=== PATIENT | female | born 1990 | race Caucasian/White ===

== ENCOUNTER 2018-01-19 20:05 | Emergency (ER) | payer OTHER ==
[2018-01-19 20:15] VITALS: BP 124/83; PULSE 89; RESP 18; TEMP 98.5
[2018-01-19] MEDS ORDERED: predniSONE 20 MG TAB PO STA (20:16)
--- NOTE | 2018-01-19 20:54 | XR ---
EXAMINATION: XR chest 2V DATE AND TIME: 01/19/2018 8:26 PM CLINICAL INDICATION: Pain TECHNIQUE: PA and lateral COMPARISON: 05/20/2013 FINDINGS: There is silhouetting of the left heart border consistent with airlessness within the lingula. Left l ower lobe ill-defined added opacity also noted, partially silhouetting the left hemidiaphragm. The ravinder ngs are otherwise clear bilaterally. The pleural spaces are negative. The cardiac silhouette is not enlarged. The skeletal structures and soft tissues are negative for acute findings. IMPRESSION: Partially consolidative opacity within the lingula and left lower lobe consistent with a clinical angela gnosis of pneumonia.
--- NOTE | 2018-01-19 21:20 | ED ---
URI HPI - General Chief Complaint: Upper Respiratory Infection Stated Complaint: right side pain/congestion Time Seen by Provider: 01/19/18 20:16 Source: patient Mode of arrival: ambulatory Limitations: no limitations - History of Present Illness Initial Comments: 28yo female with no PMH with cc of cough, congestion and pain with palpation of the right upper ribs x2 weeks. Pt states that 2 weeks ago her son was sick two weeks prior with similar symptoms. It began with a sore throat, congestions she states that the sore throat subsided however she continued to be congested and have a cough. Pt admits to increasing sputum past few days. Pt states that she has had a fever at home and has been taking tylenol and ibuprofen for mgmt. Patient denies shortness of breath, chest pain, back pain, abdominal pain, nausea or vomiting, numbness or tingling, dysuria or hematuria, constipation or diarrhea, headaches or visual changes, or any other complaints. Pt was seen and diagnosed with URI on 01/[address] [facility] no antibiotics given at that time. Upon arrival to the ER today pt VS within normal limits, pt afebrile. Appears well. - Related Data Previous Rx's Medication Instructions Recorded Albuterol Inhaler [Ventolin Hfa 1 - 2 puff INHALATION RT-Q6H PRN 7 01/19/18 Inhaler] Days #1 inhaler Azithromycin [Zithromax] 250 mg PO DAILY 4 Days #4 tab 01/19/18 predniSONE 20 mg PO DAILY 4 Days #4 tab 01/19/18 Allergies Allergy/AdvReac Type Severity Reaction Status Date / Time Penicillins Allergy Rash/Hives Verified 01/19/18 20:12 Review of Systems ROS Statement: Those systems with pertinent positive or pertinent negative responses have been documented in the HPI. ROS Other: All systems not noted in ROS Statement are negative. Constitutional: Reports: fever, chills ENT: Reports: throat pain (not in 1 week). Denies: ear pain Respiratory: Reports: cough. Denies: dyspnea, wheezes, hemoptysis, stridor Cardiovascular: Denies: chest pain, palpitations Gastrointestinal: Denies: abdominal pain, nausea, vomiting, diarrhea, constipation Genitourinary: Denies: urgency, dysuria, frequency, hematuria Musculoskeletal: Denies: back pain Skin: Denies: rash, lesions Neurological: Denies: headache, weakness, numbness, paresthesias, confusion Past Medical History Past Medical History: No Reported History History of Any Multi-Drug Resistant Organisms: None Reported Past Surgical History: No Surgical Hx Reported Past Psychological History: No Psychological Hx Reported Smoking Status: Current every day smoker Past Alcohol Use History: None Reported Past Drug Use History: None Reported General Exam - General Exam Comments Initial Comments: General: The patient is awake and alert, in no distress, and does not appear acutely ill. Eye: Pupils are equal, round and reactive to light, extra-ocular movements are intact. No nystagmus. There is normal conjunctiva bilaterally. No signs of icterus. Ears, nose, mouth and throat: There are moist mucous membranes and no oral lesions. Oropharynx is nonerythematous, there is no tonsillar enlargement or exudates. Uvula is midline. There is no palpable anterior cervical lymphadenopathy. Tympanic membranes within normal limits bilaterally. No pain to palpation of the mastoid. Post nasal drip. Nares non patent. Neck: The neck is supple, there is no tenderness or JVD. Cardiovascular: There is a regular rate and rhythm. No murmur, rub or gallop is appreciated. Respiratory: Lungs are clear to auscultation, respirations are non-labored, breath sounds are equal. No wheezes, stridor, rales, or rhonchi. (-) egophony. There is tenderness to palpation over the right upper ribs. Gastrointestinal: Soft, non-distended, non-tender abdomen without masses or organomegaly noted. There is no rebound or guarding present. No CVA tenderness. Bowel sounds are unremarkable. Musculoskeletal: Normal ROM, no tenderness. Strength 5/5. Sensation intact. Radial pulses equal bilaterally 2+. Neurological: A&O x 3. CN II-XII intact, There are no obvious motor or sensory deficits. Coordination appears grossly intact. Speech is normal. Skin: Skin is warm and dry and no rashes or lesions are noted. Psychiatric: Cooperative, appropriate mood & affect, normal judgment. Limitations: no limitations Course Vital Signs 01/19/18 20:12 Temperature 98.5 F Pulse Rate 89 Respiratory 18 Rate Blood Pressure 124/83 O2 Sat by Pulse 97 Oximetry Medical Decision Making - Medical Decision Making Pt shows no signs of respiratory distress. O2 saturation 97%, pt afebrile, HR WNL no comorbidities/immunocompromise. No recent ABX use. CXR revealed partially consolidating opacity in the linguila and left lower lobe consistent with pneumonia. Pt was given 500mg azithromycin, and an outside RX for 250mg for CAP, prednisone and albuterol inhaler. In addition pt was instructed to follow-up outpatient with her primary care provider in the next 1-2 days. Case discussed in detail with Dr. Morataya and imaging reviewed. At this time we feel pt is stable for outpatient therapy of CAP, pt appears well/nontoxic. Return parameters discussed in detail with patient who verbalized understanding, pt discharged in stable condition. Disposition Clinical Impression: CAP (community acquired pneumonia) Disposition: HOME SELF-CARE Condition: Good Instructions: Community Acquired Pneumonia (ED) Additional Instructions: Please use medication as discussed. Please follow-up with family doctor in the next 2 days. Please return to emergency room if the symptoms increase or worsen or for any other concerns, as discussed. Prescriptions: Albuterol Inhaler [Ventolin Hfa Inhaler] 1 - 2 puff INHALATION RT-Q6H PRN 7 Days #1 inhaler PRN Reason: Wheezing Azithromycin [Zithromax] 250 mg PO DAILY 4 Days #4 tab predniSONE 20 mg PO DAILY 4 Days #4 tab Is patient prescribed a controlled substance at d/c from ED?: No Referrals: None,Stated [Primary Care Provider] - 1-2 days [facility] [NON-STAFF] - 1-2 days Time of Disposition: 21:19
== END 2018-01-19 21:42 | disposition home or self-care (01) ==
LOC: EC 20:05
DX: J18.9 Pneumonia, unspecified organism (principal); F17.200 Nicotine dependence, unspecified, uncomplicated; Z88.0 Allergy status to penicillin
CPT/HCPCS: 71046; 99283; J7512

== ENCOUNTER 2019-04-27 19:38 | Emergency (ER) | payer OTHER ==
[2019-04-27] MEDS ORDERED: ALBUTEROL NEBULIZED 2.5 MG/3 ML INHALATION STA (19:58)
[2019-04-27] MEDS ORDERED: FAMOTIDINE 20 MG TAB PO STA (19:58)
[2019-04-27] MEDS ORDERED: predniSONE 20 MG TAB PO STA (19:58)
--- NOTE | 2019-04-27 19:58 | ED ---
General Adult HPI - General Chief complaint: Upper Respiratory Infection Stated complaint: fever/TOMASA Time Seen by Provider: 04/27/19 19:46 Source: patient Mode of arrival: ambulatory Limitations: no limitations - History of Present Illness Initial comments: Patient is a 29-year-old female presenting to the emergency department with a chief complaint of cough and fever. States symptoms began yesterday with a gradual onset of a productive cough with yellow sputum production. Does report some shortness of breath and wheezing. No history of asthma but does report chronic smoking. Also reports she has not developed a sore throat but denies any otalgia. Does report some sinus congestion clear bilateral rhinorrhea. Does report a fever at home. Denies taking any medication to alleviate the symptoms. No chest pain back pain abdominal pain nausea vomiting or diarrhea. - Related Data Previous Rx's Medication Instructions Recorded Albuterol Inhaler [Ventolin Hfa 1 - 2 puff INHALATION RT-Q6H PRN 7 01/19/18 Inhaler] Days #1 inhaler Azithromycin [Zithromax] 250 mg PO DAILY 4 Days #4 tab 01/19/18 predniSONE [Deltasone] 20 mg PO DAILY 4 Days #4 tab 01/19/18 Albuterol Inhaler [Ventolin Hfa 1 - 2 puff INHALATION RT-Q6H PRN 04/27/19 Inhaler] #1 inhaler Azithromycin [Zithromax Z-pack] 0 mg PO DIRECTED #1 pack 04/27/19 Guaifenesin/Dextromethorphan 1 each PO BID #30 tab 04/27/19 [Mucinex Dm ER 1,200-60 mg Tab] Oseltamivir [Tamiflu] 75 mg PO Q12HR #10 cap 04/27/19 Allergies Allergy/AdvReac Type Severity Reaction Status Date / Time Penicillins Allergy Rash/Hives Verified 04/27/19 19:42 Review of Systems ROS Statement: Those systems with pertinent positive or pertinent negative responses have been documented in the HPI. ROS Other: All systems not noted in ROS Statement are negative. Past Medical History Past Medical History: No Reported History History of Any Multi-Drug Resistant Organisms: None Reported Past Surgical History: No Surgical Hx Reported Past Psychological History: No Psychological Hx Reported Smoking Status: Current every day smoker Past Alcohol Use History: None Reported Past Drug Use History: None Reported General Exam Limitations: no limitations General appearance: alert, in no apparent distress Head exam: Present: atraumatic, normocephalic, normal inspection Eye exam: Present: normal appearance Pupils: Present: normal accommodation ENT exam: Present: normal exam, normal oropharynx, mucous membranes moist, TM's normal bilaterally, normal external ear exam Neck exam: Present: normal inspection, full ROM. Absent: lymphadenopathy Respiratory exam: Present: wheezes (Bilateral wheezing) Cardiovascular Exam: Present: normal rhythm, tachycardia, normal heart sounds Extremities exam: Present: normal inspection, full ROM, normal capillary refill Back exam: Present: normal inspection, full ROM Neurological exam: Present: alert, oriented X3 Psychiatric exam: Present: normal affect, normal mood Skin exam: Present: warm, dry, intact, normal color Course Vital Signs 04/27/19 04/27/19 04/27/19 19:39 20:07 20:23 Temperature 100.7 F H Pulse Rate 115 H 110 H 125 H Respiratory 20 Rate Blood Pressure 119/66 O2 Sat by Pulse 96 Oximetry 04/27/19 04/27/19 21:02 21:50 Temperature 102.2 F H 102.1 F H Pulse Rate 128 H 129 H Respiratory 18 24 Rate Blood Pressure 112/68 102/72 O2 Sat by Pulse 95 99 Oximetry Medical Decision Making - Medical Decision Making Patient is a 29-year-old female presenting to emergency Department with a chief complaint of cough and fever. States his symptoms began yesterday and gradually increased in severity. Exam patient does appear to have upper respiratory symptoms with bilateral wheezing. Yellow sputum production. Chest x-ray shows a partially healed lingual pneumonia compared to last imaging. Last chest x-ray was in 2018. This does not correlate. Patient was given a breathing treatment in the ED along with 60 mg of prednisone. Patient also will be discharged with a 5 day course of prednisone. Pepcid to alleviate the gastric discomfort from the steroids. Patient also be started on an azithromycin. Patient also given Tamiflu. Patient also given a mucolytic to promote better removal of mucous buildup. Patient will also be given albuterol inhaler. Patient was also given antipyretics in the ED. States there is some improvement after the breathing treatment. On reevaluation patient is still wheezing although it appears to be improved as she is able to move more air. Patient is influenza A positive. Return parameters were thoroughly discussed with patient is understanding and agreeable. Advised to follow with primary care. Case discussed with physician. - Lab Data Lab Results 04/27/19 Range/Units 20:02 Influenza Type A RNA Detected H (Not Detectd) Influenza Type B (PCR) Not Detected (Not Detectd) Disposition Clinical Impression: Influenza A, Pneumonia Disposition: HOME SELF-CARE Condition: Stable Instructions (If sedation given, give patient instructions): Reactive Airways Disease (ED) Additional Instructions: Take prescribed medication as directed. Follow-up with primary care. Return to emergency department if symptoms worsen. Prescriptions: Guaifenesin/Dextromethorphan [Mucinex Dm ER 1,200-60 mg Tab] 1 each PO BID #30 tab Oseltamivir [Tamiflu] 75 mg PO Q12HR #10 cap Albuterol Inhaler [Ventolin Hfa Inhaler] 1 - 2 puff INHALATION RT-Q6H PRN #1 inhaler PRN Reason: Shortness Of Breath Azithromycin [Zithromax Z-pack] 0 mg PO DIRECTED #1 pack Is patient prescribed a controlled substance at d/c from ED?: No Referrals: Hilario Shipley MD [Primary Care Provider] - 1-2 days Time of Disposition: 21:10
--- NOTE | 2019-04-27 20:37 | XR ---
EXAMINATION TYPE: XR chest 2V DATE OF EXAM: 04/27/2019 COMPARISON: 01/19/2018 HISTORY: Productive cough TECHNIQUE: 2 views FINDINGS: Heart is normal. Lungs are clear of consolidation. There are no hilar masses. There is some coarse density in the anterior lingula left upper lobe. There is no pleural effusion. Bony thorax is intact. IMPRESSION: There is a small lingula pneumonia that is partly cleared compared to old exam. Normal he art.
[2019-04-27] MEDS ORDERED: ACETAMINOPHEN TAB 500 MG TAB PO STA (21:03)
[2019-04-27] MEDS ORDERED: IBUPROFEN 600 MG TAB PO STA (21:09)
[2019-04-27 21:53] VITALS: BP 102/72; PULSE 129; RESP 24; TEMP 102.1
== END 2019-04-27 22:05 | disposition home or self-care (01) ==
LOC: EC 19:38
DX: J10.00 Influenza due to other identified influenza virus with unspecified type of pneumonia (principal); F17.200 Nicotine dependence, unspecified, uncomplicated; Z88.0 Allergy status to penicillin
CPT/HCPCS: 94640; 87502; 71046; 99285; J7512

== ENCOUNTER 2020-03-11 20:11 | Emergency (ER) | payer OTHER ==
[2020-03-11 20:19] VITALS: BP 128/77; PULSE 73; RESP 20; TEMP 98.4
[2020-03-11] MEDS ORDERED: CEFDINIR 300 MG CAP PO STA (20:26)
--- NOTE | 2020-03-11 20:28 | ED ---
ENT HPI - General Chief complaint: ENT Stated complaint: L Ear Pain Time Seen by Provider: 03/11/20 20:20 Source: patient, family Mode of arrival: ambulatory Limitations: no limitations - History of Present Illness Initial comments: 30yo female with FAMILIAL HX of anaphylaxis to pencillin no known personal reaction, presenting for cc of right ear pain x 1 weke. pt states 5 days ago she was started on ciprofloxacin drop as well as azithromycin. pt states neither seem to be working. denies dental pain. admits to pain in front of the ear, denies pain behind the ear, dental pain, fevers, cough or sore throat. pt denies drainage from ear, neck stiffness. patient appears well nontoxic in no acute distress. afebrile. - Related Data Previous Rx's Medication Instructions Recorded Albuterol Inhaler (Mhu) [Ventolin 1 - 2 puff INHALATION RT-Q6H PRN 7 01/19/18 Hfa Inhaler (Mhu)] Days #1 inhaler Azithromycin [Zithromax] 250 mg PO DAILY 4 Days #4 tab 01/19/18 predniSONE [Deltasone] 20 mg PO DAILY 4 Days #4 tab 01/19/18 Albuterol Inhaler (Mhu) [Ventolin 1 - 2 puff INHALATION RT-Q6H PRN 04/27/19 Hfa Inhaler (Mhu)] #1 inhaler Azithromycin [Zithromax Z-pack (6 0 mg PO DIRECTED #1 pack 04/27/19 tabs)] Guaifenesin/Dextromethorphan 1 each PO BID #30 tab 04/27/19 [Mucinex Dm ER 1,200-60 mg Tab] Oseltamivir [Tamiflu] 75 mg PO Q12HR #10 cap 04/27/19 Cefdinir 600 mg PO DAILY 7 Days #7 cap 03/11/20 Allergies Allergy/AdvReac Type Severity Reaction Status Date / Time Penicillins Allergy Rash/Hives Verified 03/11/20 20:19 Review of Systems ROS Statement: Those systems with pertinent positive or pertinent negative responses have been documented in the HPI. ROS Other: All systems not noted in ROS Statement are negative. Past Medical History Past Medical History: No Reported History History of Any Multi-Drug Resistant Organisms: None Reported Past Surgical History: No Surgical Hx Reported Past Psychological History: No Psychological Hx Reported Smoking Status: Current every day smoker Past Alcohol Use History: None Reported Past Drug Use History: None Reported General Exam - General Exam Comments Initial Comments: General: The patient is awake and alert, in no distress Eye: +3 mm pupils are equal, round and reactive to light, extra-ocular movements are intact. No nystagmus. There is normal conjunctiva bilaterally. No signs of icterus. Ears, nose, mouth and throat: There are moist mucous membranes and no oral lesions. TM bulging with effusion--no pain to mastoid. pain anterior to the ear. no dental pain. no abscess in mouth identified or pain to percussion of tooth. no neck stiffness. Neck: The neck is supple, there is no tenderness or JVD. Musculoskeletal: Normal ROM, no tenderness. Strength 5/5. Sensation intact. Radial pulses equal bilaterally 2+. Neurological: A&O x 3. CN II-XII intact grossly, There are no obvious motor or sensory deficits. Coordination appears grossly intact. Speech is normal. Skin: Skin is warm and dry and no rashes or lesions are noted. Psychiatric: Cooperative, appropriate mood & affect, normal judgment. Limitations: no limitations Course Vital Signs 03/11/20 20:14 Temperature 98.4 F Pulse Rate 73 Respiratory 20 Rate Blood Pressure 128/77 O2 Sat by Pulse 100 Oximetry Medical Decision Making - Medical Decision Making Nontoxic 30yo female on azithromycin currently presenting for left ear pain. Findings consistent with otitis media. No pain to palpation of mastoid. no drainage or EAC changes. patient will be discharged on cefdinir, pt wanted to avoid PCN due to family history, is aware that there is some cross sensitivity with cefdinir. case discussed with Dr. Hyde who is agreeable to care plan and discharge. Disposition Clinical Impression: Otitis media, Left ear pain Disposition: HOME SELF-CARE Condition: Good Instructions (If sedation given, give patient instructions): Ear Infection (ED) Prescriptions: Cefdinir 600 mg PO DAILY 7 Days #7 cap Is patient prescribed a controlled substance at d/c from ED?: No Referrals: Hilario Shipley MD [Primary Care Provider] - 1-2 days Buster Jacome MD [STAFF PHYSICIAN] - 1-2 days Time of Disposition: 20:27
[2020-03-11] MEDS ORDERED: ACET/COD 300 MG/30 MG STARTER PACK 6 TAB BTL PO STA (20:35)
== END 2020-03-11 20:53 | disposition home or self-care (01) ==
LOC: EC 20:11
DX: H66.92 Otitis media, unspecified, left ear (principal); F17.200 Nicotine dependence, unspecified, uncomplicated; Z88.0 Allergy status to penicillin
CPT/HCPCS: 99282

== ENCOUNTER 2020-07-22 20:31 | Emergency (ER) | payer OTHER ==
[2020-07-22 20:37] VITALS: BP 143/88; PULSE 88; RESP 22; TEMP 98.3
--- NOTE | 2020-07-22 21:13 | ED ---
ENT HPI - General Chief complaint: ENT Stated complaint: Tooth and ear pain Time Seen by Provider: 07/22/20 20:37 Source: patient, RN notes reviewed Mode of arrival: ambulatory Limitations: no limitations - History of Present Illness Initial comments: 30-year-old white female presents to the emergency room with complaints of 6 months of dental pain and unable to get into a dentist. Patient states also has had problems with bilateral ureters and cerumen impaction. Patient has been seen multiple times for this and last was prescribed Ciprodex but it is not helping. Patient states that the itching in the ears is often relieved by using a nik pin to scratch or a Q-tip into the inner canal. Patient came to the emergency room today because she does have some pain along submandibular and periauricular lymph nodes. Denies fevers, dizziness, or nausea and vomiting. Patient states has seen Dr. Bush in the past but has not gotten relief from the ear irritation. Patient is a half pack a day smoker MD complaint: tooth pain, ear pain -: month(s) (6) Location: R ear, L ear, tooth # (19) Severity scale (1-10): 8 Quality: aching Consistency: constant Improves with: none Worsens with: other (palpation) Context- Dental: other (broken tooth) Context- Ear: other (cerumen, uses nik pins to scratch inner ear) Associated Symptoms: discharge from ear (cerumen) - Related Data Previous Rx's Medication Instructions Recorded Albuterol Inhaler (Mhu) [Ventolin 1 - 2 puff INHALATION RT-Q6H PRN 7 01/19/18 Hfa Inhaler (Mhu)] Days #1 inhaler Azithromycin [Zithromax] 250 mg PO DAILY 4 Days #4 tab 01/19/18 predniSONE [Deltasone] 20 mg PO DAILY 4 Days #4 tab 01/19/18 Albuterol Inhaler (Mhu) [Ventolin 1 - 2 puff INHALATION RT-Q6H PRN 04/27/19 Hfa Inhaler (Mhu)] #1 inhaler Azithromycin [Zithromax Z-pack (6 0 mg PO DIRECTED #1 pack 04/27/19 tabs)] Guaifenesin/Dextromethorphan 1 each PO BID #30 tab 04/27/19 [Mucinex Dm ER 1,200-60 mg Tab] Oseltamivir [Tamiflu] 75 mg PO Q12HR #10 cap 04/27/19 Cefdinir 600 mg PO DAILY 7 Days #7 cap 03/11/20 Clindamycin [Cleocin] 450 mg PO Q8H 10 Days #30 cap 07/22/20 Allergies Allergy/AdvReac Type Severity Reaction Status Date / Time Penicillins Allergy Rash/Hives Verified 07/22/20 20:37 Review of Systems ROS Statement: Those systems with pertinent positive or pertinent negative responses have been documented in the HPI. ROS Other: All systems not noted in ROS Statement are negative. Past Medical History Past Medical History: No Reported History History of Any Multi-Drug Resistant Organisms: None Reported Past Surgical History: No Surgical Hx Reported Past Psychological History: No Psychological Hx Reported Smoking Status: Current every day smoker Past Alcohol Use History: None Reported Past Drug Use History: None Reported General Exam Limitations: no limitations General appearance: alert, in no apparent distress Head exam: Present: atraumatic, normocephalic, normal inspection Eye exam: Present: normal appearance (glasses), PERRL, EOMI. Absent: scleral icterus, conjunctival injection, periorbital swelling Pupils: Present: normal accommodation ENT exam: Present: normal exam, mucous membranes moist, other (broken #19 tooth, no abscess noted) Neck exam: Present: normal inspection, full ROM. Absent: tenderness, meningismus, lymphadenopathy, thyromegaly Respiratory exam: Present: normal lung sounds bilaterally. Absent: respiratory distress, wheezes, rales, rhonchi, stridor Cardiovascular Exam: Present: regular rate, normal rhythm, normal heart sounds. Absent: systolic murmur, diastolic murmur, rubs, gallop, clicks Extremities exam: Present: normal inspection, full ROM, normal capillary refill. Absent: tenderness, pedal edema, joint swelling, calf tenderness Back exam: Absent: tenderness Neurological exam: Present: alert, oriented X3, CN II-XII intact Psychiatric exam: Present: normal affect, normal mood Skin exam: Present: warm, dry, intact, normal color. Absent: rash Course Vital Signs 07/22/20 20:33 Temperature 98.3 F Pulse Rate 88 Respiratory 22 Rate Blood Pressure 143/88 O2 Sat by Pulse 99 Oximetry Medical Decision Making - Medical Decision Making Patient presents to the emergency room with 6 months of dental pain and bilateral ear irritation with excessive cerumen and itching. Patient has been using Ciprodex drops in her ears. Patient directed to stop the Ciprodex, obtain debrox [id number] for cerumen/earwax removal. Loratadine or Zyrtec for ear itching which is likely ALLERGIES. She'll be prescribed clindamycin for the dental fracture and directed to follow up with dentist as soon as possible. Patient is afebrile and well-appearing. Patient will be given an ENT referral. Case discussed with Dr. Hirsch was agreeable to this plan. Disposition Clinical Impression: Cerumen in auditory canal on examination, Tooth fracture Disposition: HOME SELF-CARE Condition: Good Instructions (If sedation given, give patient instructions): Earache (ED), Toothache (ED) Additional Instructions: Use Zyrtec or loratadine [id number], follow-up with the ear nose and throat doctor next week, also follow up with a dentist as soon as possible. Do not put anything in your ears including nik pins or Q-tips. Prescriptions: Clindamycin [Cleocin] 450 mg PO Q8H 10 Days #30 cap Is patient prescribed a controlled substance at d/c from ED?: No Referrals: Hilario Shipley MD [Primary Care Provider] - 1-2 days Yahir Chaudhry MD [STAFF PHYSICIAN] - 1-2 days Time of Disposition: 21:19
== END 2020-07-22 21:38 | disposition home or self-care (01) ==
LOC: EC 20:31
DX: S02.5XXA Fracture of tooth (traumatic), initial encounter for closed fracture (principal); H61.23 Impacted cerumen, bilateral; F17.200 Nicotine dependence, unspecified, uncomplicated; X58.XXXA Exposure to other specified factors, initial encounter
CPT/HCPCS: 99283

== ENCOUNTER 2023-04-23 07:32 | Emergency (ER) | payer OTHER ==
[2023-04-23 08:03] VITALS: TEMP 98.4
[2023-04-23] MEDS ORDERED: KETOROLAC 15 MG/ML 1 ML VIAL IVP STA (08:04)
[2023-04-23 08:25] LABS: Basophils % (A) 0 %; Eosinophils # (A) 0.1 k/uL (0-0.7); Eosinophils % (A) 1 %; HCT 39.7 % (34.0-46.0); HGB 13.7 gm/dL (11.4-16.0); Lymphocytes # (A) 1.6 k/uL (1.0-4.8); Lymphocytes % (A) 17 %; MCH 30.6 pg (25.0-35.0); MCHC 34.5 g/dL (31.0-37.0); MCV 88.7 fL (80.0-100.0); Mean Platelet Volume 8.7; Monocytes % (A) 10 %; Neutrophils # (A) 6.8 k/uL (1.3-7.7); Neutrophils % (A) 70 %; Platelet Count 284 k/uL (150-450); RBC 4.47 m/uL (3.80-5.40); RDW 11.7 % (11.5-15.5); WBC 9.7 k/uL (3.8-10.6)
[2023-04-23 08:42] LABS: ALT 19 U/L (4-34); AST 24 U/L (14-36); African American GFR (CKD) >90 (>60 ml/min/1.73 sqM); Albumin 3.8 g/dL (3.5-5.0); Alkaline Phosphatase 104 U/L (38-126); Anion Gap 8 mmol/L; Blood Urea Nitrogen 5 mg/dL (7-17); Carbon Dioxide 28 mmol/L (22-30); Chloride 101 mmol/L (98-107); Glucose 111 mg/dL (74-99); Non-African American GFR(CKD) >90 (>60 ml/min/1.73 sqM); Potassium 3.6 mmol/L (3.5-5.1); Sodium 137 mmol/L (137-145); Total Bilirubin 0.9 mg/dL (0.2-1.3); Total Protein 7.3 g/dL (6.3-8.2)
--- NOTE | 2023-04-23 08:42 | XR ---
EXAMINATION TYPE: XR chest 2V DATE OF EXAM: 04/23/2023 COMPARISON: 04/27/2019 HISTORY: Chest pain TECHNIQUE: Frontal and lateral views of the chest are obtained. FINDINGS: There is perihilar and infrahilar patchy density which may reflect developing pneumonia. Correlate cl inically. No evidence for pneumothorax. No pleural effusion. The cardiac silhouette size is within normal limits. The osseous structures are grossly intact. IMPRESSION: 1. There is perihilar and infrahilar patchy density which may reflect developing pneumonia. Correlat e clinically.
--- NOTE | 2023-04-23 10:12 | CT ---
EXAMINATION TYPE: CT chest angio for PE CT DLP: 175.9 mGycm, Automated exposure control for dose reduction was used. DATE OF EXAM: 04/23/2023 10:00 AM COMPARISON: Chest radiograph from same day. CLINICAL INDICATION:Female, 33 years old with history of pain; Chest pain, recent cold TECHNIQUE/CONTRAST: CTA scan of the thorax is performed with IV Contrast, patient injected with 100 mL of Isovue 370, pul monary embolism protocol. MIP images are created and reviewed. FINDINGS: Pulmonary Artery: There is no evidence for a filling defect within the pulmonary vasculature to sugge st acute pulmonary embolism. The pulmonary artery is of normal size. Lungs/Pleura: No evidence of focal consolidation, pleural effusion or pneumothorax. Minimal biapical pleural-parenchymal scarring. Few scattered small pulmonary cysts. There are patchy and reticular opa cities demonstrated throughout the lungs. This is most prominently within the right lower lobe with t ree-in-bud opacities. Atelectasis/consolidation within the medial aspect of the lingula. Additional a telectasis/consolidation within the medial aspect of the right lower lobe. Airway: Large airways are patent. Heart: Heart is within normal limits for size.. Vasculature: No evidence of aortic aneurysm. Mediastinum: Mediastinal and bilateral hilar adenopathy with an exam including a subcarinal lymph nod e measuring 1.4 cm short axis. Musculoskeletal: No acute osseous abnormalities Soft Tissues: Unremarkable. Lower neck: No significant findings. Upper Abdomen: [place] tail morphology of the liver. IMPRESSION: 1. No evidence of pulmonary embolism. 2. Patchy and reticular opacities are demonstrated throughout both lungs with consolidative opacities within the medial aspect of the right lower lobe and lingula. Prominent tree-in-bud opacities within the right lower lobe. Findings are most consistent with a infectious/inflammatory bronchiolitis/pneu monia. 3. Mediastinal and hilar lymphadenopathy likely reactive to #2.
[2023-04-23] MEDS ORDERED: DEXAMETHASONE SOD PHOSPHATE 10 MG/ML 1 ML VIAL IVP STA (10:25)
--- NOTE | 2023-04-23 10:25 | ED ---
URI HPI - General Chief Complaint: Upper Respiratory Infection Stated Complaint: R side chest pain SOB Time Seen by Provider: 04/23/23 07:38 Source: patient, RN notes reviewed Mode of arrival: ambulatory Limitations: no limitations - History of Present Illness Initial Comments: 33 old female presents emergency department complaint cough and colic symptoms. She states she been sick for 2 weeks she states that she felt she was getting better developed right-sided chest pain this morning. Patient states she has mild shortness of breath, underlying asthma. Patient denies nausea vomit diarrhea constipation. Patient offers no other complaints. - Related Data Previous Rx's Medication Instructions Recorded Albuterol Inhaler [Ventolin Hfa 1 - 2 puff INHALATION Q6H PRN #1 04/23/23 Inhaler] each Azithromycin [Zithromax Z Pack] 0 tab PO DIRECTED #6 tab 04/23/23 Allergies Allergy/AdvReac Type Severity Reaction Status Date / Time Penicillins Allergy Anaphylaxis Verified 04/23/23 09:14 Review of Systems ROS Statement: Those systems with pertinent positive or pertinent negative responses have been documented in the HPI. ROS Other: All systems not noted in ROS Statement are negative. Past Medical History Past Medical History: No Reported History History of Any Multi-Drug Resistant Organisms: None Reported Past Surgical History: No Surgical Hx Reported Past Psychological History: No Psychological Hx Reported Smoking Status: Current every day smoker Past Alcohol Use History: None Reported Past Drug Use History: None Reported General Exam Limitations: no limitations General appearance: alert, in no apparent distress Head exam: Present: atraumatic, normocephalic, normal inspection Eye exam: Present: normal appearance, PERRL, EOMI. Absent: scleral icterus, conjunctival injection, periorbital swelling ENT exam: Present: normal exam, mucous membranes moist Neck exam: Present: normal inspection, full ROM. Absent: tenderness, meningismus, lymphadenopathy Respiratory exam: Present: wheezes, rhonchi, chest wall tenderness. Absent: normal lung sounds bilaterally, respiratory distress, rales, stridor Cardiovascular Exam: Present: regular rate, normal rhythm, normal heart sounds. Absent: systolic murmur, diastolic murmur, rubs, gallop, clicks Course Vital Signs 04/23/23 04/23/23 07:39 10:51 Temperature 98.4 F Pulse Rate 99 74 Respiratory 20 18 Rate Blood Pressure 98/67 106/65 O2 Sat by Pulse 93 L 96 Oximetry Medical Decision Making - Medical Decision Making Was pt. sent in by a medical professional or institution (KATHERIN Powers, IMAGERY ANALYST, urgent care, hospital, or care home...) When possible be specific @ -No Did you speak to anyone other than the patient for history (EMS, parent, family, police, friend...)? What history was obtained from this source @ -No Did you review nursing and triage notes (agree or disagree)? Why? @ -I reviewed and agree with nursing and triage notes Were old charts reviewed (outside hosp., previous admission, EMS record, old EKG, old radiological studies, urgent care reports/EKG's, care home records)? Report findings @ -No old charts were reviewed Differential Diagnosis (chest pain, altered mental status, abdominal pain women, abdominal pain men, vaginal bleeding, weakness, fever, dyspnea, syncope, headache, dizziness, GI bleed, back pain, seizure, CVA, palpatations, mental health, musculoskeletal)? @ -COVID 19, RSV, influenza, pneumonia, acute bronchitis, URI, this list is not all inclusive EKG interpreted by me (3pts min.). @ -As above X-rays interpreted by me (1pt min.). @ -Chest shows right-sided pneumonia CT interpreted by me (1pt min.). @ -[CT angio chest negative for PE, diffuse right sided pneumonia U/S interpreted by me (1pt. min.). @ -None done What testing was considered but not performed or refused? (CT, X-rays, U/S, labs)? Why? @ -None What meds were considered but not given or refused? Why? @ -None Did you discuss the management of the patient with other professionals (professionals i.e. KATHERIN Powers, IMAGERY ANALYST, lab, RT, psych nurse, social welfare research worker, lanolin plant operator, teacher, president and chief commercial officer, case resource manager)? Give summary @ -No Was smoking cessation discussed for >3mins.? @ -No Was critical care preformed (if so, how long)? @ -No Were there social determinants of health that impacted care today? How? (Homelessness, low income, unemployed, alcoholism, drug addiction, transportation, low edu. Level, literacy, decrease access to med. care, residential, rehab)? @ -No Was there de-escalation of care discussed even if they declined (Discuss DNR or withdrawal of care, Hospice)? DNR status @ -No What co-morbidities impacted this encounter? (DM, HTN, Smoking, COPD, CAD, Cancer, CVA, ARF, Chemo, Hep., AIDS, mental health diagnosis, sleep apnea, morbid obesity)? @ -None Was patient admitted / discharged? Hospital course, mention meds given and route, prescriptions, significant lab abnormalities, going to OR and other pertinent info. @ -[Patient offered admission patient states he feels improved patient di scharged after Rocephin discharged on azithromycin follow-up in 24 hours and return pressure discussed. Undiagnosed new problem with uncertain prognosis? @ -No Drug Therapy requiring intensive monitoring for toxicity (Heparin, Nitro, Insulin, Cardizem)? @ -No Were any procedures done? @ -No Diagnosis/symptom? @ -[Pneumonia Acute, or Chronic, or Acute on Chronic? @ -Acute Uncomplicated (without systemic symptoms) or Complicated (systemic symptoms)? @ -[complicated Side effects of treatment? @ -[No Exacerbation, Progression, or Severe Exacerbation? @ -No Poses a threat to life or bodily function? How? (Chest pain, USA, CT, pneumonia, PE, COPD, DKA, ARF, appy, cholecystitis, CVA, Diverticulitis, Homicidal, Suicidal, threat to staff... and all critical care pts) @ -Yes pneumonia - Lab Data Result diagrams: 04/23/23 08:21 04/23/23 08:21 Lab Results 04/23/23 04/23/23 04/23/23 Range/Units 08:21 08:21 08:21 WBC 9.7 (3.8-10.6) k/uL RBC 4.47 (3.80-5.40) m/uL Hgb 13.7 (11.4-16.0) gm/dL Hct 39.7 (34.0-46.0) % MCV 88.7 (80.0-100.0) fL MCH 30.6 (25.0-35.0) pg MCHC 34.5 (31.0-37.0) g/dL RDW 11.7 (11.5-15.5) % Plt Count 284 (150-450) k/uL MPV 8.7 Neutrophils % 70 % Lymphocytes % 17 % Monocytes % 10 % Eosinophils % 1 % Basophils % 0 % Neutrophils # 6.8 (1.3-7.7) k/uL Lymphocytes # 1.6 (1.0-4.8) k/uL Monocytes # 1.0 (0-1.0) k/uL Eosinophils # 0.1 (0-0.7) k/uL Basophils # 0.0 (0-0.2) k/uL D-Dimer 1.89 H (<0.60) mg/L FEU Sodium 137 (137-145) mmol/L Potassium 3.6 (3.5-5.1) mmol/L Chloride 101 (98-107) mmol/L Carbon Dioxide 28 (22-30) mmol/L Anion Gap 8 mmol/L BUN 5 L (7-17) mg/dL Creatinine 0.64 (0.52-1.04) mg/dL Est GFR (CKD-EPI)AfAm >90 (>60 ml/min/1.73 sqM) Est GFR (CKD-EPI)NonAf >90 (>60 ml/min/1.73 sqM) Glucose 111 H (74-99) mg/dL Calcium 9.0 (8.4-10.2) mg/dL Total Bilirubin 0.9 (0.2-1.3) mg/dL AST 24 (14-36) U/L ALT 19 (4-34) U/L Alkaline Phosphatase 104 (38-126) U/L Troponin I (0.000-0.034) ng/mL Total Protein 7.3 (6.3-8.2) g/dL Albumin 3.8 (3.5-5.0) g/dL Influenza Type A (PCR) (Not Detectd) Influenza Type B (PCR) (Not Detectd) RSV (PCR) (Not Detectd) SARS-CoV-2 (PCR) (Not Detectd) 04/23/23 04/23/23 Range/Units 08:21 08:21 WBC (3.8-10.6) k/uL RBC (3.80-5.40) m/uL Hgb (11.4-16.0) gm/dL Hct (34.0-46.0) % MCV (80.0-100.0) fL MCH (25.0-35.0) pg MCHC (31.0-37.0) g/dL RDW (11.5-15.5) % Plt Count (150-450) k/uL MPV Neutrophils % % Lymphocytes % % Monocytes % % Eosinophils % % Basophils % % Neutrophils # (1.3-7.7) k/uL Lymphocytes # (1.0-4.8) k/uL Monocytes # (0-1.0) k/uL Eosinophils # (0-0.7) k/uL Basophils # (0-0.2) k/uL D-Dimer (<0.60) mg/L FEU Sodium (137-145) mmol/L Potassium (3.5-5.1) mmol/L Chloride (98-107) mmol/L Carbon Dioxide (22-30) mmol/L Anion Gap mmol/L BUN (7-17) mg/dL Creatinine (0.52-1.04) mg/dL Est GFR (CKD-EPI)AfAm (>60 ml/min/1.73 sqM) Est GFR (CKD-EPI)NonAf (>60 ml/min/1.73 sqM) Glucose (74-99) mg/dL Calcium (8.4-10.2) mg/dL Total Bilirubin (0.2-1.3) mg/dL AST (14-36) U/L ALT (4-34) U/L Alkaline Phosphatase (38-126) U/L Troponin I <0.012 (0.000-0.034) ng/mL Total Protein (6.3-8.2) g/dL Albumin (3.5-5.0) g/dL Influenza Type A (PCR) Not Detected (Not Detectd) Influenza Type B (PCR) Not Detected (Not Detectd) RSV (PCR) Not Detected (Not Detectd) SARS-CoV-2 (PCR) Not Detected (Not Detectd) - EKG Data -: EKG Interpreted by Me EKG Comments: EKG performed at 8: 34 sinus rhythm with rate of 93 QRS 114 QRS 73 QT/QTc 341/392 Disposition Clinical Impression: Pneumonia Disposition: HOME SELF-CARE Condition: Stable Instructions (If sedation given, give patient instructions): Bacterial Pneumonia (ED) Additional Instructions: Please return to the Emergency Department if symptoms worsen or any other concerns. Prescriptions: Albuterol Inhaler [Ventolin Hfa Inhaler] 1 - 2 puff INHALATION Q6H PRN #1 each PRN Reason: Shortness Of Breath Azithromycin [Zithromax Z Pack] 0 tab PO DIRECTED #6 tab Is patient prescribed a controlled substance at d/c from ED?: No Referrals: Hilario Shipley MD [Primary Care Provider] - 1-2 days Time of Disposition: 10:25
[2023-04-23 10:59] VITALS: BP 106/65; PULSE 74; RESP 18
== END 2023-04-23 11:29 | disposition home or self-care (01) ==
LOC: EC 07:32
DX: J18.9 Pneumonia, unspecified organism (principal); J45.909 Unspecified asthma, uncomplicated; F17.200 Nicotine dependence, unspecified, uncomplicated; Z20.822 Contact with and (suspected) exposure to COVID-19; Z88.0 Allergy status to penicillin
CPT/HCPCS: 36415; 93005; 85379; 80053; 84484; 85025; 87040; 87636; 71046; 71275; 99285; 96365; 96375 ×2; J1100; J0696; J1885; Q9967